=== PATIENT | female | born 1995 | race Two or more races ===

== ENCOUNTER 2023-03-21 08:41 | Emergency (ER) | payer OTHER ==
[2023-03-21 09:19] VITALS: BP 95/62; PULSE 67; RESP 16; TEMP 98; BMI 18.6
== END 2023-03-21 11:05 | disposition home or self-care (01) ==
LOC: JER 08:41
DX: R51.9 Headache, unspecified (principal); M54.2 Cervicalgia; M25.562 Pain in left knee; M54.6 Pain in thoracic spine; M62.838 Other muscle spasm; V49.40XA Driver injured in collision with unspecified motor vehicles in traffic accident, initial encounter; Y93.I9 Activity, other involving external motion; Y92.481 Parking lot as the place of occurrence of the external cause
CPT/HCPCS: 72040-TC; 72070-TC-FY; 73562-TC-LT-FY; 99284-25